=== PATIENT | male | born 1985 | race Caucasian/White ===

== ENCOUNTER 2017-03-28 12:34 | Emergency (ER) | payer OTHER ==
[2017-03-28 12:51] VITALS: BP 136/83; PULSE 85; RESP 20; TEMP 97.5
--- NOTE | 2017-03-28 13:48 | ED ---
ENT HPI - General Chief complaint: ENT Stated complaint: Something in Left Ear Time Seen by Provider: 03/28/17 13:23 Source: patient, RN notes reviewed Mode of arrival: ambulatory Limitations: no limitations - History of Present Illness Initial comments: This is a 31-year-old male who presents to the emergency department with chief complaint of sensation of foreign body in left ear. Patient states that prior to arrival he awoke from a nap and felt like something was moving around in his left ear. Patient reports that his home is infested with bed bugs and they have not been able to get rid of them. Patient states that he has not experienced any hearing changes. Denies pain or discharge from left ear. Denies fever, chills, chest pain, shortness of breath, abdominal pain, nausea or vomiting, constipation or diarrhea, dysuria or hematuria, numbness or tingling, headache or vision changes. - Related Data Home Medications Medication Instructions Recorded Confirmed Magnesium 200 mg PO DAILY 02/01/15 08/12/15 Naproxen [Naprosyn] 375 mg PO Q12HR 02/01/15 08/12/15 Previous Rx's Medication Instructions Recorded Albuterol Inhaler [Ventolin Hfa 1 - 2 puff INHALATION Q6HR PRN #1 08/12/15 Inhaler] inhaler Benzonatate [Tessalon Perles] 100 mg PO TID PRN #15 cap 08/12/15 guaiFENesin [Mucinex] 1,200 mg PO Q12HR PRN #12 08/12/15 tab.er.12h Allergies Allergy/AdvReac Type Severity Reaction Status Date / Time No Known Allergies Allergy Verified 03/28/17 12:51 Review of Systems ROS Statement: Those systems with pertinent positive or pertinent negative responses have been documented in the HPI. ROS Other: All systems not noted in ROS Statement are negative. Past Medical History Additional Past Medical History / Comment(s): Cranial sinostosis, kyphosis History of Any Multi-Drug Resistant Organisms: None Reported Past Surgical History: Hernia Repair Additional Past Surgical History / Comment(s): crainal sx. abdominal sx Past Psychological History: ADD/ADHD Smoking Status: Never smoker Past Alcohol Use History: None Reported Past Drug Use History: None Reported General Exam - General Exam Comments Initial Comments: General: Awake and alert, well-developed; in no apparent distress. HEENT: Head atraumatic, normocephalic. Pupils are equal, round and reactive to light. Extraocular movements intact. Small, circular brown insect noted at inferior left TM. Neck: Supple. Normal ROM. Cardiovascular: Regular rate and rhythm. No murmurs, rubs or gallops. Chest symmetrical. Respiratory: Lungs clear to auscultation bilaterally. No wheezes, rales or rhonchi. Normal respiratory effort with no use of accessory muscles. Skin: [place], warm and dry without rashes or lesions. Neurological: Alert and oriented x3. CN II-XII grossly intact. Speech is fluent and answers are appropriate. No focal neuro deficits. Psychiatric: Normal mood and affect. No overt signs of depression or anxiety noted. Limitations: no limitations Course Vital Signs 03/28/17 12:49 Temperature 97.5 F L Pulse Rate 85 Respiratory 20 Rate Blood Pressure 136/83 O2 Sat by Pulse 98 Oximetry Medical Decision Making - Medical Decision Making This is a 31-year-old male who presents with complaint of foreign body in left ear. On physical examination a small, brown insect was noted in the left ear. 1% lidocaine was inserted into left ear. Left ear was then irrigated until insect was removed. Patient tolerated well without complications. Insect appears to be a flea. When discussed with patient, he reports he has a cat at home that has fleas. Recommended that he have his cat treated as well as the home. Patient is in agreement. He will be discharged home. He is in no acute distress at this time and no longer feels like something is moving in his ear. Disposition Clinical Impression: Foreign body of ear, left Disposition: HOME SELF-CARE Condition: Good Instructions: Ear Foreign Body (ED) Additional Instructions: Please follow up with primary care provider within 1-2 days. Return to emergency department if symptoms should worsen or any concerns arise. Referrals: None,Stated [Primary Care Provider] - 1-2 days Time of Disposition: 13:48
== END 2017-03-28 13:35 | disposition home or self-care (01) ==
LOC: EC 12:34
DX: T16.2XXA Foreign body in left ear, initial encounter (principal); Z79.1 Long term (current) use of non-steroidal anti-inflammatories (NSAID); Z79.899 Other long term (current) drug therapy
CPT/HCPCS: 99282

== ENCOUNTER 2017-10-10 16:21 | Emergency (ER) | payer OTHER ==
[2017-10-10 16:34] VITALS: RESP 16
--- NOTE | 2017-10-10 17:12 | ED ---
General Adult HPI - General Chief complaint: Seizure Stated complaint: Seizure Time Seen by Provider: 10/10/17 16:39 Source: patient, RN notes reviewed Mode of arrival: ambulatory Limitations: no limitations - History of Present Illness Initial comments: This a 31-year-old male presents emergency Department chief complaint of absent seizures. Patient states that he had craniostenosis as an states that he had surgery. 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 He states that he hasn't had any recent imaging and several years. He states that he feels that they're becoming more prominent. He does not see a current neurologist. Patient states that he had an absence seizure earlier today. He has no specific complaints at this time. Denies any chest pain, shortness breath, nausea, vomiting, diarrhea constipation. Patient denies any current medication use. Patient denies illicit drug use. - Related Data Home Medications Medication Instructions Recorded Confirmed [id number] 1 - 2 tab PO Q4HR PRN 10/10/17 10/10/17 [Excedrin] Allergies Allergy/AdvReac Type Severity Reaction Status Date / Time No Known Allergies Allergy Verified 10/10/17 16:41 Review of Systems ROS Statement: Those systems with pertinent positive or pertinent negative responses have been documented in the HPI. ROS Other: All systems not noted in ROS Statement are negative. Past Medical History Additional Past Medical History / Comment(s): Cranial sinostosis, kyphosis History of Any Multi-Drug Resistant Organisms: None Reported Past Surgical History: Hernia Repair Additional Past Surgical History / Comment(s): crainal sx. abdominal sx Past Psychological History: ADD/ADHD Smoking Status: Never smoker Past Alcohol Use History: None Reported Past Drug Use History: None Reported General Exam Limitations: no limitations General appearance: alert, in no apparent distress Head exam: Present: atraumatic, normocephalic. Absent: normal inspection (Old surgical scars noted) Eye exam: Present: normal appearance, PERRL, EOMI. Absent: scleral icterus, conjunctival injection, periorbital swelling ENT exam: Present: normal exam, normal oropharynx, mucous membranes moist Neck exam: Present: normal inspection. Absent: tenderness, meningismus, lymphadenopathy Respiratory exam: Present: normal lung sounds bilaterally. Absent: respiratory distress, wheezes, rales, rhonchi, stridor Cardiovascular Exam: Present: regular rate, normal rhythm, normal heart sounds. Absent: systolic murmur, diastolic murmur, rubs, gallop, clicks GI/Abdominal exam: Present: soft, normal bowel sounds. Absent: distended, tenderness, guarding, rebound, rigid Back exam: Absent: normal inspection (Patient is hunchback) Neurological exam: Present: alert, oriented X3, CN II-XII intact, normal gait, reflexes normal, other (Finger to nose intact bilaterally). Absent: motor sensory deficit Skin exam: Present: warm, dry, intact, normal color. Absent: rash Course Vital Signs 10/10/17 16:32 Temperature 98.8 F Pulse Rate 82 Respiratory 16 Rate Blood Pressure 140/82 O2 Sat by Pulse 98 Oximetry Medical Decision Making - Medical Decision Making 31-year-old male presented for concerns or worsening absent seizures. Patient has known history. Patient was concerned that he has a mass. Patient had CT which is unremarkable. Patient will be given on-call urology. Return parameters were discussed. Disposition Clinical Impression: Seizures Disposition: HOME SELF-CARE Condition: Stable Instructions: Recurrent Seizures in Adults (ED) Additional Instructions: Please return to the Emergency Department if symptoms worsen or any other concerns. Is patient prescribed a controlled substance at d/c from ED?: No Referrals: None,Stated [Primary Care Provider] - 1-2 days
--- NOTE | 2017-10-10 17:34 | CT ---
EXAMINATION TYPE: CT brain wo con DATE OF EXAM: 10/10/2017 COMPARISON: NONE HISTORY: Patient complains of multiple seizures yesterday with history of prior seizures. Patient se izures are increasing in frequency, intensity, and pain level. Patient has history of craniosynostos is. CT DLP: 1959.0 mGycm. Automated Exposure Control for Dose Reduction was Utilized. TECHNIQUE: CT scan of the head is performed without contrast. FINDINGS: Ventricles are not enlarged. There is no mass effect nor midline shift. There is no sign of intracranial hemorrhage. There is cranial deformity consistent with old cranial synostosis. There is no evidence of cerebral edema. CONCLUSION: Negative CT scan of the brain. Previous cranial surgery.
[2017-10-10 18:35] VITALS: BP 137/85; PULSE 69; TEMP 98
== END 2017-10-10 18:30 | disposition home or self-care (01) ==
LOC: EC 16:21
DX: R56.9 Unspecified convulsions (principal); M40.209 Unspecified kyphosis, site unspecified; Z98.890 Other specified postprocedural states
CPT/HCPCS: 70450; 99284

== ENCOUNTER 2018-06-29 21:01 | Emergency (ER) | payer OTHER ==
--- NOTE | 2018-06-29 21:42 | ED ---
Extremity Problem HPI - General Chief complaint: Extremity Problem,Nontraumatic Stated complaint: Feet Pain Time Seen by Provider: 06/29/18 21:08 Source: patient, EMS Mode of arrival: EMS Limitations: no limitations - History of Present Illness Initial comments: 32-year-old male patient presents to the emergency department today for evaluation of lower extremity cramping and swelling. Patient states he has been having swelling in the lower extremities over the last year. Patient states today he had an intense cramp-like pain to the left foot that lasted for several minutes and felt "crippling". Patient states he has been having increased cramping and spasms to his lower extremities over the last couple of weeks. He denies any chest pain or trouble breathing. Denies any injury to the foot. Denies any swelling to other parts of his body. Denies any recent travel, calf pain, or calf tenderness. Patient denies any recent rash, fever, chills, abdominal pain, nausea, vomiting, diarrhea, constipation, back pain, numbness, tingling, dizziness, weakness, hematuria, dysuria, urinary urgency, urinary frequency, headache, visual changes, or any other complaints. - Related Data Home Medications Medication Instructions Recorded Confirmed [id number] 1 - 2 tab PO Q4HR PRN 10/10/17 06/29/18 [Excedrin] Allergies Allergy/AdvReac Type Severity Reaction Status Date / Time No Known Allergies Allergy Verified 06/29/18 21:55 Review of Systems ROS Statement: Those systems with pertinent positive or pertinent negative responses have been documented in the HPI. ROS Other: All systems not noted in ROS Statement are negative. Past Medical History Additional Past Medical History / Comment(s): Cranial sinostosis, kyphosis History of Any Multi-Drug Resistant Organisms: None Reported Past Surgical History: Hernia Repair Additional Past Surgical History / Comment(s): crainal sx. abdominal sx Past Psychological History: ADD/ADHD Smoking Status: Never smoker Past Alcohol Use History: None Reported Past Drug Use History: None Reported General Exam Limitations: no limitations General appearance: alert, in no apparent distress, other (Social well-developed , well-nourished adult male patient in no acute distress. Vital signs upon presentation are temperature 98.4F, pulse 100, respirations 20, blood pressure 131/94, pulse ox 98% on room air.) Eye exam: Present: normal appearance, PERRL, EOMI. Absent: scleral icterus, conjunctival injection, periorbital swelling ENT exam: Present: normal exam, normal oropharynx, mucous membranes moist Respiratory exam: Present: normal lung sounds bilaterally. Absent: respiratory distress, wheezes, rales, rhonchi, stridor Cardiovascular Exam: Present: regular rate, normal rhythm, normal heart sounds. Absent: systolic murmur, diastolic murmur, rubs, gallop, clicks Extremities exam: Present: normal inspection, full ROM, normal capillary refill , other (Patient has lower leg and foot swelling, nonpitting. Skin is pink, warm, dry. Cap refills less than 3 seconds. Pedal pulses 2+ and equal bilaterally.). Absent: tenderness, pedal edema, joint swelling, calf tenderness Neurological exam: Present: alert, oriented X3, CN II-XII intact Psychiatric exam: Present: normal affect, normal mood Skin exam: Present: warm, dry, intact, normal color. Absent: rash Course Vital Signs 06/29/18 06/29/18 21:03 23:40 Temperature 98.4 F 98.2 F Pulse Rate 100 78 Respiratory 20 18 Rate Blood Pressure 131/94 130/84 O2 Sat by Pulse 98 99 Oximetry Medical Decision Making - Medical Decision Making 32-year-old male patient presented to the emergency department today for evaluation of leg and foot cramping. He also reports swelling to the lower extremities but status been going on for the last year. Physical examination did reveal nonpitting edema to the bilateral lower legs and feet. Did perform comprehensive metabolic panel and BNP which were unremarkable. There were no electrolyte abnormalities. No evidence of heart failure.patient was instructed to wear compression stockings and keep his legs elevated. He is instructed to increase fluids. He is instructed to follow-up with his primary care physician for recheck in 1-2 days. Return parameters were discussed in detail. He verbalizes understanding and agrees with this plan. - Lab Data Result diagrams: 06/29/18 21:29 Lab Results 06/29/18 06/29/18 Range/Units 21:29 21:29 Sodium 141 (137-145) mmol/L Potassium 4.8 (3.5-5.1) mmol/L Chloride 109 H (98-107) mmol/L Carbon Dioxide 22 (22-30) mmol/L Anion Gap 10 mmol/L BUN 14 (9-20) mg/dL Creatinine 0.83 (0.66-1.25) mg/dL Est GFR (CKD-EPI)AfAm >90 (>60 ml/min/1.73 sqM) Est GFR (CKD-EPI)NonAf >90 (>60 ml/min/1.73 sqM) Glucose 95 (74-99) mg/dL Calcium 8.9 (8.4-10.2) mg/dL Total Bilirubin 0.4 (0.2-1.3) mg/dL AST 32 (17-59) U/L ALT 45 (21-72) U/L Alkaline Phosphatase 66 (38-126) U/L NT-Pro-B Natriuret Pep 29 pg/mL Total Protein 7.7 (6.3-8.2) g/dL Albumin 4.2 (3.5-5.0) g/dL Disposition Clinical Impression: Foot cramps Disposition: HOME SELF-CARE Condition: Good Instructions (If sedation given, give patient instructions): Leg Cramps (ED), Muscle Cramp (ED) Additional Instructions: Increase fluids. Follow up with her primary care physician for recheck in 1-2 days. Wear compression stockings and keep her legs elevated. Return to the emergency department immediately for any new, worsening, or concerning symptoms. Is patient prescribed a controlled substance at d/c from ED?: No Referrals: Terry Zelaya MD [Primary Care Provider] - 1-2 days Time of Disposition: 23:20
[2018-06-29 22:34] LABS: Albumin 4.2 g/dL (3.5-5.0); Anion Gap 10 mmol/L; Blood Urea Nitrogen 14 mg/dL (9-20); Calcium 8.9 mg/dL (8.4-10.2); Carbon Dioxide 22 mmol/L (22-30); Chloride 109 mmol/L (98-107); Glucose 95 mg/dL (74-99); Sodium 141 mmol/L (137-145); Total Bilirubin 0.4 mg/dL (0.2-1.3); Total Protein 7.7 g/dL (6.3-8.2)
[2018-06-29 23:10] LABS: Potassium 4.8 mmol/L (3.5-5.1)
[2018-06-29 23:11] LABS: ALT 45 U/L (21-72); AST 32 U/L (17-59); Alkaline Phosphatase 66 U/L (38-126)
[2018-06-29 23:43] VITALS: BP 130/84; PULSE 78; RESP 18; TEMP 98.2
== END 2018-06-29 23:40 | disposition home or self-care (01) ==
LOC: EC 21:01
DX: R25.2 Cramp and spasm (principal); R60.0 Localized edema
CPT/HCPCS: 36415; 80053; 83880; 99283

== ENCOUNTER 2018-09-25 16:28 | Emergency (ER) | payer OTHER ==
[2018-09-25] MEDS ORDERED: SODIUM CHLORIDE 0.9% 500 ML 500 ML IV STA (17:31)
[2018-09-25] MEDS ORDERED: FAMOTIDINE 20 MG/2 ML VIAL IV STA (17:31)
[2018-09-25] MEDS ORDERED: METOCLOPRAMIDE 5 MG/ML 2 ML VIAL IVP STA (17:31)
--- NOTE | 2018-09-25 17:34 | ED ---
General Adult HPI - General Chief complaint: Abdominal Pain Stated complaint: Abd pain Time Seen by Provider: 09/25/18 17:15 Source: patient, RN notes reviewed Mode of arrival: ambulatory Limitations: no limitations - History of Present Illness Initial comments: Patient is a pleasant 32-year-old male presenting to the emergency Department with complaints of abdominal discomfort. Onset of symptoms was 2 days ago after eating a large meal at a [employer] buffet. Patient does have history of similar symptoms previously however symptoms usually only last around a day. Discomfort is epigastric region. No radiation. Patient does have intermittent cons tipation. No significant constipation recently. No diarrhea. No nausea or vomiting. No fever. - Related Data Home Medications Medication Instructions Recorded Confirmed Acetaminophen Tab [Tylenol Tab] 1,000 mg PO Q6H PRN 09/25/18 09/25/18 Allergies Allergy/AdvReac Type Severity Reaction Status Date / Time No Known Allergies Allergy Verified 09/25/18 17:34 Review of Systems ROS Statement: Those systems with pertinent positive or pertinent negative responses have been documented in the HPI. ROS Other: All systems not noted in ROS Statement are negative. Constitutional: Denies: fever Eyes: Denies: eye pain ENT: Denies: ear pain Respiratory: Denies: cough Cardiovascular: Denies: chest pain Endocrine: Denies: fatigue Gastrointestinal: Reports: as per HPI, abdominal pain Genitourinary: Denies: dysuria Musculoskeletal: Denies: back pain Skin: Denies: rash Neurological: Denies: weakness Past Medical History Additional Past Medical History / Comment(s): Cranial sinostosis, kyphosis History of Any Multi-Drug Resistant Organisms: None Reported Past Surgical History: Hernia Repair Additional Past Surgical History / Comment(s): crainal sx. abdominal sx Past Psychological History: ADD/ADHD Smoking Status: Never smoker Past Alcohol Use History: None Reported Past Drug Use History: None Reported General Exam Limitations: no limitations General appearance: alert, in no apparent distress, obese Head exam: Present: atraumatic Eye exam: Present: normal appearance, PERRL ENT exam: Present: normal oropharynx Neck exam: Present: normal inspection Respiratory exam: Present: normal lung sounds bilaterally Cardiovascular Exam: Present: regular rate, normal rhythm Expanded Peripheral pulses: 2+: Posterior Tibialis (R), Posterior Tibialis (L) GI/Abdominal exam: Present: soft, tenderness (Minimal epigastric tenderness), normal bowel sounds. Absent: distended, guarding, rebound, rigid, pulsatile mass Extremities exam: Present: normal inspection. Absent: calf tenderness Neurological exam: Present: alert Psychiatric exam: Present: normal affect, normal mood Skin exam: Present: normal color Course Vital Signs 09/25/18 16:37 Temperature 98.2 F Pulse Rate 72 Respiratory 22 Rate Blood Pressure 157/83 O2 Sat by Pulse 94 L Oximetry Medical Decision Making - Medical Decision Making Patient reevaluated and resting comfortably in bed, symptom-free. Patient updated on results. - Lab Data Result diagrams: 09/25/18 18:23 09/25/18 18:23 Lab Results 09/25/18 09/25/18 09/25/18 Range/Units 18:23 18:23 18:23 WBC 7.0 (3.8-10.6) k/uL RBC 4.59 (4.30-5.90) m/uL Hgb 13.4 (13.0-17.5) gm/dL Hct 41.5 (39.0-53.0) % MCV 90.4 (80.0-100.0) fL MCH 29.1 (25.0-35.0) pg MCHC 32.2 (31.0-37.0) g/dL RDW 14.5 (11.5-15.5) % Plt Count 201 (150-450) k/uL Neutrophils % 60 % Lymphocytes % 28 % Monocytes % 6 % Eosinophils % 2 % Basophils % 1 % Neutrophils # 4.2 (1.3-7.7) k/uL Lymphocytes # 1.9 (1.0-4.8) k/uL Monocytes # 0.4 (0-1.0) k/uL Eosinophils # 0.2 (0-0.7) k/uL Basophils # 0.0 (0-0.2) k/uL Sodium 142 (137-145) mmol/L Potassium 4.8 (3.5-5.1) mmol/L Chloride 111 H (98-107) mmol/L Carbon Dioxide 22 (22-30) mmol/L Anion Gap 9 mmol/L BUN 16 (9-20) mg/dL Creatinine 0.68 (0.66-1.25) mg/dL Est GFR (CKD-EPI)AfAm >90 (>60 ml/min/1.73 sqM) Est GFR (CKD-EPI)NonAf >90 (>60 ml/min/1.73 sqM) Glucose 101 H (74-99) mg/dL Calcium 9.5 (8.4-10.2) mg/dL Total Bilirubin 0.5 (0.2-1.3) mg/dL AST 34 (17-59) U/L ALT 42 (21-72) U/L Alkaline Phosphatase 68 (38-126) U/L Total Protein 7.8 (6.3-8.2) g/dL Albumin 4.4 (3.5-5.0) g/dL Amylase 52 (30-110) U/L Lipase 140 (23-300) U/L Urine Color Yellow Urine Appearance Clear (Clear) Urine pH 5.0 (5.0-8.0) Ur Specific [place] 1.031 (1.001-1.035) Urine Protein Negative (Negative) Urine Glucose (UA) Negative (Negative) Urine Ketones Negative (Negative) Urine Blood Negative (Negative) Urine Nitrite Negative (Negative) Urine Bilirubin Negative (Negative) Urine Urobilinogen <2.0 (<2.0) mg/dL Ur Leukocyte Esterase Negative (Negative) - Radiology Data Radiology results: image reviewed (Abdominal x-ray reveals no acute process) Disposition Clinical Impression: Epigastric pain Disposition: HOME SELF-CARE Condition: Stable Instructions (If sedation given, give patient instructions): Abdominal Pain (ED) Additional Instructions: Please follow-up with primary care physician in the next couple days for recheck. Return for increased pain, fevers, vomiting, worsening symptoms or other concerns. [id number] Pepcid as needed. Is patient prescribed a controlled substance at d/c from ED?: No Referrals: Terry Zelaya MD [Primary Care Provider] - 1-2 days Time of Disposition: 18:53
--- NOTE | 2018-09-25 18:11 | XR ---
EXAMINATION TYPE: XR KUB DATE OF EXAM: 09/25/2018 COMPARISON: NONE HISTORY: Abdominal pain TECHNIQUE: 2 views upright FINDINGS: There is no sign of intestinal obstruction or pneumoperitoneum. Fecal pattern is normal. Jen ng bases are clear. There are no pathologic calcifications over the kidneys. There is mild lumbar dex troscoliosis. IMPRESSION: Nonacute abdomen.
[2018-09-25 18:33] LABS: Basophils % (A) 1 %; Eosinophils # (A) 0.2 k/uL (0-0.7); Eosinophils % (A) 2 %; HCT 41.5 % (39.0-53.0); HGB 13.4 gm/dL (13.0-17.5); Lymphocytes # (A) 1.9 k/uL (1.0-4.8); Lymphocytes % (A) 28 %; MCH 29.1 pg (25.0-35.0); MCHC 32.2 g/dL (31.0-37.0); MCV 90.4 fL (80.0-100.0); Mean Platelet Volume 8.3; Monocytes # (A) 0.4 k/uL (0-1.0); Monocytes % (A) 6 %; Neutrophils # (A) 4.2 k/uL (1.3-7.7); Neutrophils % (A) 60 %; Platelet Count 201 k/uL (150-450); RBC 4.59 m/uL (4.30-5.90); RDW 14.5 % (11.5-15.5)
[2018-09-25 18:35] LABS: Appearance,Urine Clear (Clear); Bilirubin,Urine Negative (Negative); Blood,Urine Negative (Negative); Color,Urine Yellow; Glucose,Urine (UA) Negative (Negative); Ketones,Urine Negative (Negative); Leukocyte Esterase,Urine Negative (Negative); Nitrite,Urine Negative (Negative); Protein,Urine Negative (Negative); Specific Gravity,Urine 1.031 (1.001-1.035); Urobilinogen,Urine <2.0 mg/dL (<2.0)
[2018-09-25 18:38] LABS: ALT 42 U/L (21-72); AST 34 U/L (17-59); Albumin 4.4 g/dL (3.5-5.0); Alkaline Phosphatase 68 U/L (38-126); Amylase 52 U/L (30-110); Anion Gap 9 mmol/L; Blood Urea Nitrogen 16 mg/dL (9-20); Calcium 9.5 mg/dL (8.4-10.2); Carbon Dioxide 22 mmol/L (22-30); Chloride 111 mmol/L (98-107); Glucose 101 mg/dL (74-99); Lipase 140 U/L (23-300); Potassium 4.8 mmol/L (3.5-5.1); Sodium 142 mmol/L (137-145); Total Bilirubin 0.5 mg/dL (0.2-1.3); Total Protein 7.8 g/dL (6.3-8.2)
[2018-09-25 19:24] VITALS: BP 142/88; PULSE 75; RESP 18; TEMP 97.6
== END 2018-09-25 19:15 | disposition home or self-care (01) ==
LOC: EC 16:28
DX: R10.13 Epigastric pain (principal); K59.00 Constipation, unspecified; Z87.728 Personal history of other specified (corrected) congenital malformations of nervous system and sense organs; Z98.890 Other specified postprocedural states
CPT/HCPCS: 99284; 96374; 96375; 36415; 80053; 82150; 83690; 85025; 81003; 74018; J2765

== ENCOUNTER 2019-03-05 02:27 | Emergency (ER) | payer OTHER ==
[2019-03-05 02:39] VITALS: BP 157/111; PULSE 88; RESP 18; TEMP 97.7
--- NOTE | 2019-03-05 02:52 | ED ---
General Adult HPI - General Chief complaint: Extremity Problem,Nontraumatic Stated complaint: Toenail injury Time Seen by Provider: 03/05/19 02:40 Source: patient, RN notes reviewed Mode of arrival: ambulatory Limitations: no limitations - History of Present Illness Initial comments: 33-year-old male presents to the emergency department for great toenail avulsion of the right foot. Patient states that his right toenail has been coming on for some time. Patient states that today he ripped it off. States that it started bleeding and he could not get it to stop bleeding. He states that his mom wanted him to have it looked at. Denies fevers or chills. Denies any spreading or streaking redness up the fifth toe or foot. Denies any drainage from that area. Denies any history of diabetes.Patient has no other complaints at this time including shortness of breath, chest pain, abdominal pain, nausea or vomiting, headache, or visual changes. - Related Data Home Medications Medication Instructions Recorded Confirmed Acetaminophen Tab [Tylenol Tab] 1,000 mg PO Q6H PRN 09/25/18 09/25/18 Allergies Allergy/AdvReac Type Severity Reaction Status Date / Time No Known Allergies Allergy Verified 03/05/19 02:38 Review of Systems ROS Statement: Those systems with pertinent positive or pertinent negative responses have been documented in the HPI. ROS Other: All systems not noted in ROS Statement are negative. Past Medical History Additional Past Medical History / Comment(s): Cranial sinostosis, kyphosis History of Any Multi-Drug Resistant Organisms: None Reported Past Surgical History: Hernia Repair Additional Past Surgical History / Comment(s): crainal sx. abdominal sx Past Psychological History: ADD/ADHD Smoking Status: Never smoker Past Alcohol Use History: None Reported Past Drug Use History: None Reported General Exam Limitations: no limitations General appearance: alert, in no apparent distress Head exam: Present: atraumatic, normocephalic, normal inspection Eye exam: Present: normal appearance, PERRL, EOMI. Absent: scleral icterus, conjunctival injection, periorbital swelling ENT exam: Present: normal exam, mucous membranes moist Neck exam: Present: normal inspection, full ROM. Absent: tenderness, meni ngismus, lymphadenopathy Respiratory exam: Present: normal lung sounds bilaterally. Absent: respiratory distress, wheezes, rales, rhonchi, stridor Cardiovascular Exam: Present: regular rate, normal rhythm, normal heart sounds. Absent: systolic murmur, diastolic murmur, rubs, gallop, clicks Extremities exam: Present: other (Patient has toenail avulsion noted of the right great toe. Nail bed is intact. Hemostasis is achieved on presentation. There is no evidence of erythema or edema consistent with infection. There is no drainage. Capillary refill is less than 2 seconds in all digits of the right foot. DP pulses 2+.) Course Vital Signs 03/05/19 02:35 Temperature 97.7 F Pulse Rate 88 Respiratory 18 Rate Blood Pressure 157/111 O2 Sat by Pulse 97 Oximetry Medical Decision Making - Medical Decision Making On presentation bleeding has stopped. Hemostasis is achieved. There is no evidence of infection. No history of injury to the toe as patient pulled off the toenail himself. Abx ointment was applied to the area. Wound was dressed. At this time patient can follow up with primary care. Recommended to protect that toe. Patient was given a fracture shoe as he states he is not allowed to wear sandals according to his doctor and cannot get his shoe on as it irritates his right great toe. Patient is hypertensive here in the emergency department. He is asymptomatic. He will follow up with his primary care provider for this. Disposition Clinical Impression: Avulsion of toenail of right foot Disposition: HOME SELF-CARE Condition: Good Instructions (If sedation given, give patient instructions): Nail Avulsion (ED) Additional Instructions: Take Motrin and Tylenol for pain. Rest ice and elevate the right foot. Follow up with primary care in 1-2 days. Return to the emergency department if you have any worsening symptoms. Is patient prescribed a controlled substance at d/c from ED?: No Referrals: Terry Zelaya MD [Primary Care Provider] - 1-2 days Time of Disposition: 02:51
== END 2019-03-05 03:06 | disposition home or self-care (01) ==
LOC: EC 02:27
DX: S91.201A Unspecified open wound of right great toe with damage to nail, initial encounter (principal); I10 Essential (primary) hypertension
CPT/HCPCS: 99283

== ENCOUNTER 2019-03-14 12:42 | Emergency (ER) | payer OTHER ==
[2019-03-14 12:51] VITALS: BP 134/80; PULSE 82; RESP 18; TEMP 97.9
--- NOTE | 2019-03-14 13:35 | ED ---
General Adult HPI - General Source: patient, RN notes reviewed, old records reviewed Mode of arrival: ambulatory Limitations: no limitations <Jie Joseph - Last Filed: 03/14/19 13:28> <Geno Wilson - Last Filed: 03/17/19 16:04> - General Chief complaint: Recheck/Abnormal Lab/Rx Stated complaint: recheck - toe problem Time Seen by Provider: 03/14/19 12:54 - History of Present Illness Initial comments: Patient is a 33-year-old male, presents emergency department today for evaluation for chief complaint of concern for right great toe nail avulsion. Patient reports that he ripped his toenail off approximately 2 weeks ago. Patient reports he is concerned today because the dressing and seemed to adhere to his skin. Patient reports she has not taken off since his initial visit. Patient states that he is also concern for some pain in the left slight erythema around the toe. Patient has no fevers or chills. Denies a history of diabetes. (Jie Joseph) - Related Data Home Medications Medication Instructions Recorded Confirmed Acetaminophen Tab [Tylenol Tab] 1,000 mg PO Q6H PRN 09/25/18 09/25/18 Previous Rx's Medication Instructions Recorded Cephalexin [Keflex] 500 mg PO Q8HR #21 cap 03/14/19 Allergies Allergy/AdvReac Type Severity Reaction Status Date / Time No Known Allergies Allergy Verified 03/14/19 12:48 Review of Systems ROS Other: All systems not noted in ROS Statement are negative. <Jie Joseph - Last Filed: 03/14/19 13:28> ROS Other: All systems not noted in ROS Statement are negative. <Geno Wilson - Last Filed: 03/17/19 16:04> ROS Statement: Those systems with pertinent positive or pertinent negative responses have been documented in the HPI. Past Medical History Past Medical History: No Reported History Additional Past Medical History / Comment(s): Cranial sinostosis, kyphosis History of Any Multi-Drug Resistant Organisms: None Reported Past Surgical History: Hernia Repair Additional Past Surgical History / Comment(s): crainal sx. abdominal sx Past Psychological History: ADD/ADHD Smoking Status: Never smoker Past Alcohol Use History: None Reported Past Drug Use History: None Reported <Jie Joseph - Last Filed: 03/14/19 13:28> General Exam Limitations: no limitations General appearance: alert, in no apparent distress Head exam: Present: atraumatic, normocephalic, normal inspection Eye exam: Present: normal appearance, PERRL, EOMI. Absent: scleral icterus, conjunctival injection, periorbital swelling ENT exam: Present: normal exam, mucous membranes moist Neck exam: Present: normal inspection. Absent: tenderness, meningismus, lymphadenopathy Respiratory exam: Present: normal lung sounds bilaterally Cardiovascular Exam: Present: regular rate, normal rhythm, normal heart sounds. Absent: systolic murmur, diastolic murmur, rubs, gallop, clicks GI/Abdominal exam: Present: soft, normal bowel sounds. Absent: distended, tenderness, guarding, rebound, rigid Extremities exam: Present: normal inspection, full ROM, normal capillary refill, pedal edema (1+ pitting edema bilaterally.), other (toe nail avulsion 1st toe. Scabbing and mild erythema noted. Full range of motion noted. No evidence of growing nail bed at this time.). Absent: tenderness, joint swelling, calf tenderness Back exam: Present: normal inspection Neurological exam: Present: alert, oriented X3, CN II-XII intact Psychiatric exam: Present: normal affect, normal mood Skin exam: Present: warm, dry, intact, normal color. Absent: rash <Jie Joseph - Last Filed: 03/14/19 13:28> - General Exam Comments Initial Comments: Pleasant 33-year-old male. No significant distress. (Jie Joseph) Course Vital Signs 03/14/19 12:48 Temperature 97.9 F Pulse Rate 82 Respiratory 18 Rate Blood Pressure 134/80 O2 Sat by Pulse 98 Oximetry Medical Decision Making <Jie Joseph - Last Filed: 03/14/19 13:28> <Geno Wilson - Last Filed: 03/17/19 16:04> - Medical Decision Making Patient is a 33-year-old male, presenting today for reevaluation of right great toe nail avulsion that happened a week ago. He states hasn't changed the dressing since that time and it seems to the dressing is stuck to his skin. At this time Patient dressing was removed and evidence of some scabbing over the distal toenail, very mild erythema, concerns or mild infection. No significant drainage but I did attempt to obtain a wound culture. Patient tolerated this well. A new dressing was applied with bacitracin. Range of motion of the toe. The Patient should follow-up with a training and development officer to ensure that the toenail grows correctly and does not develop to be an ingrown toenail. For the mild irritation on discussed putting the Patient on antibiotic cream and proper wound care dressing. Discussed he can do use a short course of Keflex as well. Patient nurse's treatment plan will comply. Return parameters were discussed. (Jie Joseph) I was available for consultation in the emergency department. The history and physical exam were done by the midlevel provider. I was consulted for this patients care. I reviewed the case with the midlevel provider and based on their presentation of the patient, I agree with the assessment, medical decision making and plan of care as documented. Chart was dictated using [employer] dictation software. Attempts were made to correct any dictation errors however some typographical errors may persist. (Geno Wilson) Disposition Is patient prescribed a controlled substance at d/c from ED?: No Time of Disposition: 13:34 <Jie Joseph - Last Filed: 03/14/19 13:28> <Geno Wilson - Last Filed: 03/17/19 16:04> Clinical Impression: Avulsion of toenail of right foot Disposition: HOME SELF-CARE Condition: Good Instructions (If sedation given, give patient instructions): Nail Avulsion (ED) Additional Instructions: Patient advised to follow-up with podiatry. Patient should do frequent absence all soaks of the toe. I keep area clean and covered with antibiotic ointment. He G want the skin to also dry from time to time. Patient should monitor for any worsening redness or swelling. Recommended following up with primary care doctor as well. Prescriptions: Cephalexin [Keflex] 500 mg PO Q8HR #21 cap Referrals: Terry Zelaya MD [Primary Care Provider] - 1-2 days Daniel Ortiz DPM [STAFF PHYSICIAN] - 1-2 days
== END 2019-03-14 13:35 | disposition home or self-care (01) ==
LOC: EC 12:42
DX: S91.201D Unspecified open wound of right great toe with damage to nail, subsequent encounter (principal); R60.0 Localized edema; Z87.798 Personal history of other (corrected) congenital malformations; X58.XXXD Exposure to other specified factors, subsequent encounter
CPT/HCPCS: 87070; 87205; 99283